=== PATIENT | male | born 1990 | race Caucasian/White ===

== ENCOUNTER 2016-12-13 19:20 | Emergency (ER) | payer SELFPAY ==
[~2016-12-13] VITALS: Ht 172.7 cm; Wt 85.0 kg
[~2016-12-13 19:20] MED LIST: AUGM875T PO; CYCL-36 PO; IBUP800 PO
[2016-12-13 19:22] VITALS: BP 129/75; PULSE 66; RESP 16; TEMP 98.4; O2SAT 98
--- NOTE | 2016-12-13 19:31 | PD ---
Physical Exam Date Seen by Provider: Dec 13, 2016 Time Seen by Provider: 19:24 Narrative 26 y/o male here with Abdominal pain. Patient complaining of Sharp Epigastric pain since last night. Denies Nausea, vomiting, Fever or Diarrhea. Denies ETOH or previous stomach issues. Started after eating at [employer]. Patient states it did not improve OTC meds or with eating today. V/S stable Awaiting Bed Placement. Data Data Last Documented VS Vital Signs Date Time Temp Pulse Resp B/P Pulse Ox O2 Delivery O2 Flow Rate FiO2 12/13/16 19:22 98.4 66 16 129/75 98 MDM Medical Record Reviewed: Yes Supervised Visit with KETAN: Yes Condition: Stable Cameron Azul Dec 13, 2016 19:31
[2016-12-13 21:26] VITALS: BP 132/69; PULSE 63; RESP 16; O2SAT 100
[2016-12-13] MEDS ORDERED: SODIUM CHLOR 0.9% 1000 ML INJ 1,000 ML IV SCH (21:27)
[2016-12-13] MEDS ORDERED: SODIUM CHLORIDE 0.9% FLUSH 10 ML FLUSH IV FLUSH PRN (21:30)
[2016-12-13] MEDS ORDERED: PANTOPRAZOLE SODIUM 40 MG VIAL IVP ONE (21:30)
--- NOTE | 2016-12-13 21:31 | PD ---
HPI Chief Complaint: Abdominal Pain Time Seen by Provider: 21:28 Travel History International Travel<30 days: No Contact w/Intl Traveler<30days: No History of Present Illness HPI 26-year-old male presents to the emergency department for evaluation of epigastric abdominal pain that started after eating waffles at 11 AM yesterday at [facility]. The patient states he has had this pain in the past and states he was told it was dehydration. He states has been several years since he has had this pain. He denies any nausea, vomiting, diarrhea constipation. He has no chronic medical problems and takes no prescribed medications. He states he took Gas-X thinking it was just gas pain, but this did not help. He states the pain is sharp. He denies any alcohol or illegal drug use. PFS Past Medical History Medical History: Denies Significant Hx Immunizations Current: Yes Tetanus Vaccination: Unknown Influenza Vaccination: No Past Surgical History Surgical History: No Previous Surgery Social History Alcohol Use: No Tobacco Use: Yes (CHEW TOBACCO) Substance Use: No Allergies-Medications (Allergen,Severity, Reaction): Coded Allergies: No Known Allergies (Unverified , 12/13/16) Reported Meds & Prescriptions Reported Meds & Active Scripts Active Review of Systems Except as stated in HPI: all other systems reviewed are Neg Physical Exam Narrative GENERAL: Well-nourished, well-developed male patient, ambulatory. Afebrile. SKIN: Focused skin assessment warm/dry. HEAD: Normocephalic. Atraumatic. EYES: No scleral icterus. No injection or drainage. NECK: Supple, trachea midline. No JVD or lymphadenopathy. CARDIOVASCULAR: Regular rate and rhythm without murmurs, gallops, or rubs. RESPIRATORY: Breath sounds equal bilaterally. No accessory muscle use. Lungs sounds are clear to auscultation. GASTROINTESTINAL: Abdomen soft and nondistended. Patient has epigastric tenderness to palpation. No other abdominal pain to palpation. MUSCULOSKELETAL: No cyanosis, or edema. BACK: Nontender without obvious deformity. No CVA tenderness. Data Data Last Documented VS Vital Signs Date Time Temp Pulse Resp B/P Pulse Ox O2 Delivery O2 Flow Rate FiO2 12/13/16 21:32 100 Room Air 12/13/16 21:26 63 16 132/69 12/13/16 19:22 98.4 Orders Complete Blood Count With Diff (12/13/16 21:27) Comprehensive Metabolic Panel (12/13/16 21:27) Lipase (12/13/16 21:27) Iv Access Insert/Monitor (12/13/16 21:27) Ecg Monitoring (12/13/16 21:27) Oximetry (12/13/16 21:27) Pantoprazole Inj (Protonix Inj) (12/13/16 21:30) Sodium Chlor 0.9% 1000 Ml Inj (Ns 1000 M (12/13/16 21:27) Sodium Chloride 0.9% Flush (Ns Flush) (12/13/16 21:30) Ct Abd/Pel W Iv Contrast(Rout) (12/13/16 22:53) Labs Laboratory Tests Test 12/13/16 21:31 White Blood Count 10.1 TH/MM3 Red Blood Count 5.26 MIL/MM3 Hemoglobin 15.7 GM/DL Hematocrit 46.6 % Mean Corpuscular Volume 88.6 FL Mean Corpuscular Hemoglobin 29.8 PG Mean Corpuscular Hemoglobin 33.6 % Concent Red Cell Distribution Width 13.5 % Platelet Count 79 TH/MM3 Mean Platelet Volume 12.1 FL Neutrophils (%) (Auto) 61.2 % Lymphocytes (%) (Auto) 26.2 % Monocytes (%) (Auto) 6.3 % Eosinophils (%) (Auto) 5.8 % Basophils (%) (Auto) 0.5 % Neutrophils # (Auto) 6.2 TH/MM3 Lymphocytes # (Auto) 2.6 TH/MM3 Monocytes # (Auto) 0.6 TH/MM3 Eosinophils # (Auto) 0.6 TH/MM3 Basophils # (Auto) 0.0 TH/MM3 CBC Comment AUTO DIFF Differential Comment AUTO DIFF CONFIRMED Platelet Estimate LOW Platelet Morphology Comment NORMAL Red Cell Morphology Comment NORMAL Sodium Level 140 MEQ/L Potassium Level 3.9 MEQ/L Chloride Level 107 MEQ/L Carbon Dioxide Level 27.0 MEQ/L Anion Gap 6 MEQ/L Blood Urea Nitrogen 9 MG/DL Creatinine 0.96 MG/DL Estimat Glomerular Filtration 94 ML/MIN Rate Random Glucose 98 MG/DL Calcium Level 8.9 MG/DL Total Bilirubin 0.2 MG/DL Aspartate Amino Transf 26 U/L (AST/SGOT) Alanine Aminotransferase 36 U/L (ALT/SGPT) Alkaline Phosphatase 85 U/L Total Protein 6.8 GM/DL Albumin 3.6 GM/DL Lipase 202 U/L [facility] Medical Decision Making Medical Screen Exam Complete: Yes Emergency Medical Condition: Yes Medical Record Reviewed: Yes Differential Diagnosis Gastritis versus pancreatitis versus cholecystitis Narrative Course 26-year-old male presents to the emergency department for evaluation of epigastric abdominal pain that started after eating well. [employer] yesterday morning. Patient does appear well on exam. CBC, CMP, lipase are ordered and pending. Patient is given normal saline 1 L IV bolus and Protonix 40 mg IV. CBC shows platelets of 76, no other acute abnormality. CMP shows no acute abnormality. Lipase is 202. CT the abdomen/pelvis is ordered and pending. My attending physician, Dr. Saha, will resume care and disposition of patient. Condition: Stable Ave Valdovinos Dec 13, 2016 21:31
[2016-12-13 21:32] VITALS: O2SAT 100
[2016-12-13 21:49] LABS: AUTOMATED NEUTROPHIL # 6.2 TH/MM3 (1.8-7.7); BASOPHIL % 0.5 % (0.0-2.0); EOSINOPHIL # 0.6 TH/MM3 (0-0.4); EOSINOPHIL % 5.8 % (0.0-4.0); HEMATOCRIT 46.6 % (39.0-51.0); LYMPH % 26.2 % (9.0-44.0); LYMPHOCYTE # 2.6 TH/MM3 (1.0-4.8); MEAN CELL VOLUME 88.6 FL (80.0-100.0); MEAN CORPUSCULAR HEMOGLOBIN 29.8 PG (27.0-34.0); MEAN CORPUSCULAR HGB CONC 33.6 % (32.0-36.0); MONO % 6.3 % (0.0-8.0); NEUT % 61.2 % (16.0-70.0); PLATELET COUNT 79 TH/MM3 (150-450); RED BLOOD COUNT 5.26 MIL/MM3 (4.50-5.90); RED CELL DISTRIBUTION WIDTH 13.5 % (11.6-17.2); WHITE BLOOD COUNT 10.1 TH/MM3 (4.0-11.0)
[2016-12-13 21:52] LABS: HEMO FLAGS AUTO DIFF
[2016-12-13 22:17] LABS: ANION GAP 6 MEQ/L (5-15); AST (GOT) 26 U/L (15-37); BLOOD UREA NITROGEN 9 MG/DL (7-18); CHLORIDE 107 MEQ/L (98-107); GLOMERULAR FILTRATION RATE 94 ML/MIN (>89); POTASSIUM 3.9 MEQ/L (3.5-5.1); SODIUM (NA) 140 MEQ/L (136-145)
[2016-12-13 22:21] LABS: ALKALINE PHOSPHATASE 85 U/L (45-117); ALT (GPT) 36 U/L (12-78); PLATELET ESTIMATE SMEAR LOW (NORMAL); PLATELET MORPHOLOGY NORMAL (NORMAL); SCAN/DIFF AUTO DIFF CONFIRMED; TOTAL BILIRUBIN ADULT 0.2 MG/DL (0.2-1.0)
[2016-12-13] MEDS ORDERED: IOHEXOL 350 MG/ML 10 ML VIAL (for RAD DIAG) IV ONE (23:38)
--- NOTE | 2016-12-14 00:02 | RADRPT ---
EXAM DATE/TIME: 12/13/2016 23:26 [place] COMPARISON: No previous studies available for comparison. INDICATIONS : Upper medial abdominal pain. IV CONTRAST: 85 cc Omnipaque 350 (iohexol) IV ORAL CONTRAST: No oral contrast ingested. RADIATION DOSE: 12.50 CTDIvol (mGy) MEDICAL HISTORY : None SURGICAL HISTORY : None. ENCOUNTER: Initial ACUITY: 1 day PAIN SCALE: 6/10 LOCATION: Bilateral upper quadrant TECHNIQUE: Volumetric scanning of the abdomen and pelvis was performed. Using automated exposure control and ad justment of the mA and/or kV according to patient size, radiation dose was kept as low as reasonably achievable to obtain optimal diagnostic quality images. FINDINGS: There is subsegmental atelectasis in the both bases. The liver and spleen are normal in size and no focal defects are identified. Multiple calcified granulomas are present in the spleen. The gallbladde r and pancreas are unremarkable. No intrahepatic or extrahepatic ductal dilatation is seen. The adren al glands and kidneys appear normal bilaterally. No hydronephrosis or mass lesions are identified. Examination of the pelvis demonstrates no evidence of free fluid or pelvic mass. No abnormally enlarg ed inguinal or retroperitoneal lymph nodes are present. The bladder is unremarkable. There is diverti culosis without evidence of diverticulitis. CONCLUSION: 1. No evidence of acute abdominal or pelvic process. No masses are identified. 2. Diverticulosis without evidence of diverticulitis. Milton Bautista MD on December 13, 2016 at 23:50 Board Certified Radiologist. This report was verified electronically.
[2016-12-14] MEDS ORDERED: ZOFR4TAB3 SL (01:12)
[2016-12-14] MEDS ORDERED: ZANT300T PO (01:12)
--- NOTE | 2016-12-14 01:12 | PD ---
Physical Exam Date Seen by Provider: December 14, 2016 Time Seen by Provider: 00:00 Narrative Patient signed out to me by ROLANDO, please see ROLANDO for further details. Awaiting CAT scan. Laboratory Tests Test 12/13/16 21:31 Platelet Count 79 TH/MM3 (150-450) Mean Platelet Volume 12.1 FL (7.0-11.0) Eosinophils (%) (Auto) 5.8 % (0.0-4.0) Eosinophils # (Auto) 0.6 TH/MM3 (0-0.4) Platelet Estimate LOW (NORMAL) Last 24 hours Impressions Abdomen/Pelvis CT 12/13/16 2213 Signed Impressions: Service Date/Time: Tuesday, December 13, 2016 23:26 - CONCLUSION: 1. No evidence of acute abdominal or pelvic process. No masses are identified. 2. Diverticulosis without evidence of diverticulitis. Milton Bautista MD Laboratory and CAT scan did not show any signs of acute processes. Abdomen is fairly benign. CT of the abdomen did not show any signs of acute intra- abdominal processes. It was noted that incidentally his platelets are low. This will need to be reevaluated with primary care physician. Return for any worsening in symptoms as needed. The plan has been discussed with him and he states understanding. Data Data Last Documented VS Vital Signs Date Time Temp Pulse Resp B/P Pulse Ox O2 Delivery O2 Flow Rate FiO2 12/13/16 21:32 100 Room Air 12/13/16 21:26 63 16 132/69 12/13/16 19:22 98.4 Orders Complete Blood Count With Diff (12/13/16 21:27) Comprehensive Metabolic Panel (12/13/16 21:27) Lipase (12/13/16 21:27) Iv Access Insert/Monitor (12/13/16 21:27) Ecg Monitoring (12/13/16 21:27) Oximetry (12/13/16 21:27) Pantoprazole Inj (Protonix Inj) (12/13/16 21:30) Sodium Chlor 0.9% 1000 Ml Inj (Ns 1000 M (12/13/16 21:27) Sodium Chloride 0.9% Flush (Ns Flush) (12/13/16 21:30) Ct Abd/Pel W Iv Contrast(Rout) (12/13/16 22:53) Iohexol 350 Inj (Omnipaque 350 Inj) (12/13/16 23:38) Labs Laboratory Tests Test 12/13/16 21:31 White Blood Count 10.1 TH/MM3 Red Blood Count 5.26 MIL/MM3 Hemoglobin 15.7 GM/DL Hematocrit 46.6 % Mean Corpuscular Volume 88.6 FL Mean Corpuscular Hemoglobin 29.8 PG Mean Corpuscular Hemoglobin 33.6 % Concent Red Cell Distribution Width 13.5 % Platelet Count 79 TH/MM3 Mean Platelet Volume 12.1 FL Neutrophils (%) (Auto) 61.2 % Lymphocytes (%) (Auto) 26.2 % Monocytes (%) (Auto) 6.3 % Eosinophils (%) (Auto) 5.8 % Basophils (%) (Auto) 0.5 % Neutrophils # (Auto) 6.2 TH/MM3 Lymphocytes # (Auto) 2.6 TH/MM3 Monocytes # (Auto) 0.6 TH/MM3 Eosinophils # (Auto) 0.6 TH/MM3 Basophils # (Auto) 0.0 TH/MM3 CBC Comment AUTO DIFF Differential Comment AUTO DIFF CONFIRMED Platelet Estimate LOW Platelet Morphology Comment NORMAL Red Cell Morphology Comment NORMAL Sodium Level 140 MEQ/L Potassium Level 3.9 MEQ/L Chloride Level 107 MEQ/L Carbon Dioxide Level 27.0 MEQ/L Anion Gap 6 MEQ/L Blood Urea Nitrogen 9 MG/DL Creatinine 0.96 MG/DL Estimat Glomerular Filtration 94 ML/MIN Rate Random Glucose 98 MG/DL Calcium Level 8.9 MG/DL Total Bilirubin 0.2 MG/DL Aspartate Amino Transf 26 U/L (AST/SGOT) Alanine Aminotransferase 36 U/L (ALT/SGPT) Alkaline Phosphatase 85 U/L Total Protein 6.8 GM/DL Albumin 3.6 GM/DL Lipase 202 U/L [facility] Medical Record Reviewed: Yes Supervised Visit with KETAN: Yes Diagnosis Primary Impression: Abdominal pain Additional Impression: Thrombocytopenia Patient Instructions: General Instructions Departure Forms: Tests/Procedures Med/Other Pt SpecificInfo: Prescription(s) given Scripts Ondansetron Odt (Zofran Odt)4 Mg Tab4 Mg SL Q6HR PRN (Nausea/Vomiting) #7 TAB Ref 0 Prov:Melquiades Saha MD 12/14/16 Ranitidine (Zantac)300 Mg Yyr184 Mg PO DAILY #10 TAB Ref 0 Prov:Melquiades Saha MD 12/14/16 Disposition: 01 DISCHARGE HOME Condition: Stable SoonMelquiades russo MD December 14, 2016 01:12
== END 2016-12-14 01:27 | disposition home or self-care (01) ==
LOC: NEPC 19:20
DX: R10.9 Unspecified abdominal pain (principal); D69.6 Thrombocytopenia, unspecified; F17.220 Nicotine dependence, chewing tobacco, uncomplicated
CPT/HCPCS: 74177; 80053; 83690; 85025; 96361; 96374; 99284; C9113; J7030; Q9967